=== PATIENT | female | born 2000 | race African-American/Black ===

== ENCOUNTER 2020-06-03 11:17 | Emergency (ER) | payer SELFPAY ==
[~2020-06-03] VITALS: Ht 165.1 cm; Wt 116.8 kg
[2020-06-03] MEDS ORDERED: PLEASE ENTER ALLERGIES MC SCH (12:00)
[2020-06-03] MEDS ORDERED: ALBUTEROL/IPRATROPIUM 2.5MG/0.5MG, 3 ML NPPB ONE (12:00)
[2020-06-03 12:03] LABS: ALBUMIN 3.7 g/dL (3.4-5.0); ANION GAP 7 mmol/L (5-15); CHLORIDE 106 mmol/L (98-107); CREATININE 0.72 mg/dL (0.55-1.02)
[2020-06-03 12:04] LABS: BASOPHILS % (AUTO) 0 % (0-1); EOSINOPHILS % (AUTO) 1 % (1-7); LYMPHOCYTES % (AUTO) 31 % (22-44); MEAN CORPUSCULAR HEMOGLOBIN 25.9 pg (27.0-34.8); MEAN CORPUSCULAR HGB CONC 31.7 g/dL (32.4-35.8); MEAN PLATELET VOLUME 9.2 fL (7.4-10.4); MONOCYTES % (AUTO) 7 % (2-9); NEUTROPHILS % (AUTO) 60 % (42-75); PLATELET COUNT 343 x10^3/uL (130-400); RED BLOOD COUNT 4.27 x10^6/uL (3.82-5.3); RED CELL DISTRIBUTION WIDTH 15.8 % (9.6-15.2)
[2020-06-03 12:06] LABS: MD NO
--- NOTE | 2020-06-03 12:35 | NUR ---
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
--- NOTE | 2020-06-03 13:30 | NUR ---
LATE ENTRY FOR 1330 D/T PATIENT CARE: PT WALKED BACK FROM TRIAGE. C/O SOB AND STERNAL CHEST TIGHTNESS STARTING THIS MORNING. HX OF ASTHMA. A&O, RESPS EVEN AND UNLABORED, ABLE TO SPEAK IN FULL SENTENCES. ALL MONITORS ATTACHED. NADN. PT TO HAVE NEB TX AND RECHECK.
[2020-06-03] MEDS ORDERED: ALBUTEROL/IPRATROPIUM 2.5MG/0.5MG, 3 ML ONE (13:51)
--- NOTE | 2020-06-03 14:15 | NUR ---
neb treatment in progress. pt tolerating well. vss
[2020-06-03 14:16] VITALS: BP 144/81
--- NOTE | 2020-06-03 14:27 | NUR ---
PT REPORTS CHEST PRESSURE AND SOB IMPROVED S/P NEB TX, PT TOLERATED WELL. PT A&O, RESPS EVEN AND UNLABORED, SPEAKING IN FULL SENTENCES. NADN. PT TO BE DISCHARGED. REPORT GIVEN TO DIONNE RESTREPO.
--- NOTE | 2020-06-03 14:45 | NUR ---
DISCHARGE INSTRUCTIONS REVIEWED
== END 2020-06-03 14:49 | disposition home or self-care (01) ==
LOC: ED 14:30
DX: J45.31 Mild persistent asthma with (acute) exacerbation (principal)
CPT/HCPCS: 36415; 71045; 80048; 82040; 85025; 93005; 94640; 99285; J7512